=== PATIENT | male | born 1970 | race Caucasian/White ===

== ENCOUNTER 2016-11-11 19:02 | Emergency (ER) | payer BC ==
[~2016-11-11 19:02] MED LIST: ALLEGRA-D1 TAB.SR1 PO; ANTERA PO; SINGULAIR PO
== END 2016-11-11 20:11 | disposition home or self-care (01) ==
LOC: CED 19:02
DX: G51.0 Bell's palsy (principal); Z79.899 Other long term (current) drug therapy
CPT/HCPCS: 99284